=== PATIENT | female | born 1990 | race Caucasian/White ===

== ENCOUNTER 2016-06-20 19:58 | Emergency (ER) ==
[2016-06-20 20:06] VITALS: BP 108/75; TEMP 99.9; BMI 22.4
--- NOTE | 2016-06-20 20:17 | ED.PDOC ---
General ED Provider: Dr. JOY RAYO Chief Complaint: Abdominal Pain Stated Complaint: Patient is a 25 year old female who states she has been told that she has thickened lining of uterus and has appt in july to schedule hysterectomy. Today she complains of diffuse abdominal pain and cramping that started this morning Time Seen by Physician: 20:17 Mode of Arrival: Walk-In Information Source: Patient Exam Limitations: No limitations Primary Care Provider: MONY LOVING Nursing and Triage Documentation Reviewed and Agree: Yes GI Complaint Exam - Abdominal Pain Complaint/Exam Onset: Gradual Duration: 1 day Symptoms Are: Still present Timing: Constant Initial Severity: Moderate Current Severity: Moderate Location of Pain: Discrete Radiates To: Denies: Chest, Back, Flank, LLQ, RLQ, Inguinal Character: Reports: Cramping Aggravating: Reports: None Alleviating: Reports: None Associated Signs and Symptoms: Denies: Diaphoresis, Fever, Cough, Chest pain, Dizziness, Back pain, Constipation, Blood in stool, Dysuria, Urinary frequency, Decreased urine output, Decreased appetite, Vaginal bleeding, Vaginal discharge , Nausea, Vomiting, Diarrhea, Sore throat, Decreased activity AAA Risk Factors: Reports: None Cardiac Risk Factors: Reports: None Ectopic Risk Factors: Reports: Tubal ligation Ovarian Torsion Risk Factors: Reports: Tubal ligation Surgical Obstruction Risk Factors: Reports: None Related Surgical History: Reports: None Patient Rh Status: Unknown Abdominal Findings: Absent: Pulsatile mass, Abdominal distention, Unequal femoral pulses, Rebound tenderness, Peritoneal signs, McBurney's Point tender, CVA Tenderness, Hernia, Inguinal swelling Review of Systems - Review Of Systems Constitutional: Reports: No symptoms Eyes: Reports: No symptoms Ears, Nose, Mouth, Throat: Reports: No symptoms Respiratory: Reports: No symptoms Cardiac: Reports: No symptoms GI: Reports: Abdominal pain : Reports: No symptoms Musculoskeletal: Reports: No symptoms Skin: Reports: No symptoms Neurological: Reports: Anxiety All Other Systems: Reviewed and Negative Past Medical History - Past Medical History Endocrine: Reports: None Cardiovascular: Reports: None Respiratory: Reports: None Hematological: Reports: None Gastrointestinal: Reports: None Genitourinary: Reports: None Neuro/Psych: Reports: None Musculoskeletal: Reports: None Cancer: Reports: None Last Menstrual Period: 05/24/16 - Surgical History General Surgical History: Reports: Tubal ligation - Family History Family History: Reports: Unknown - Social History Smoking Status: Current every day smoker, Light tobacco smoker Hx Substance Use: No Alcohol Screening: None - Immunizations Tetanus Shot up to Date: Yes Physical Exam - Physical Exam Appearance: Ill-appearing Ill-appearing: Moderate Pain Distress: Moderate Eyes: LYDIA ENT: Ears normal, Nose normal, Oropharynx normal Neck: Supple Respiratory: Airway patent, Breath sounds clear, Breath sounds equal, Respirations nonlabored Cardiovascular: RRR GI/: Soft, Tender (mild diffuse ) Musculoskeletal: Normal strength, ROM intact, No edema, No calf tenderness Skin: Warm Neurological: Sensation intact, Motor intact, Reflexes intact, Cranial nerves intact, Alert, Oriented Psychiatric: Anxious Interpretation - Radiology Interpretation Radiology Interpretation By: Radiologist Radiology Results: Negative Exam Interpreted: CT Scan Critical Care Note - Critical Care Note Total Time (mins): 0 Course - Course Hematology/Chemistry: 06/20/16 20:15 06/20/16 20:15 Orders, Labs, Meds: Lab Review 06/20/16 06/20/16 20:15 20:20 WBC 8.23 RBC 4.39 Hgb 12.6 Hct 36.6 L MCV 83.4 MCH 28.7 MCHC 34.4 RDW Coeff of Sarah Beth 12.4 Plt Count 185 Immature Gran % (Auto) 0.1 Neut % (Auto) 68.4 Lymph % (Auto) 23.2 Roberts % (Auto) 5.5 Eos % (Auto) 2.4 Baso % (Auto) 0.4 Immature Gran # (Auto) 0.0 Neut # 5.6 Lymph # 1.9 Roberts # 0.5 Eos # 0.2 Baso # 0.0 Sodium 138 Potassium 3.6 Chloride 105 Carbon Dioxide 25 Anion Gap 11.6 BUN 14 Creatinine 0.76 Estimated GFR (MDRD) 92.00 BUN/Creatinine Ratio 18.42 Glucose 82 Calcium 8.9 Total Bilirubin 0.86 AST 19 ALT 20 Alkaline Phosphatase 51 Total Protein 7.2 Albumin 4.0 Globulin 3.2 Albumin/Globulin Ratio 1.25 Amylase 33 Lipase 21 Urine Color [place] Urine Clarity Clear Urine pH 5.5 Ur Specific [place] 1.025 Urine Protein Negative Urine Glucose (UA) Negative Urine Ketones Trace Urine Blood Negative Urine Nitrite Negative Urine Bilirubin 1+ Urine Urobilinogen 2.0 Ur Leukocyte Esterase Negative Orders Category Date Time Status ED IV/MEDIPORT/POWERPORT .ONCE EMERGENCY 06/20/16 20:52 Active AMYLASE Stat LAB 06/20/16 20:15 Completed CBC W/ AUTO DIFF Stat LAB 06/20/16 20:15 Completed COMPREHENSIVE METABOLIC PANEL Stat LAB 06/20/16 20:15 Completed LIPASE Stat LAB 06/20/16 20:15 Completed URINALYSIS C & S IF INDICATED Stat LAB 06/20/16 20:20 Completed 0.9 % Sodium Chloride [Saline Flush] MEDS 06/20/16 20:52 Discontinued 1 syr IVF PRN PRN Morphine Sulfate [Morphine 4 mg/ml Syringe] MEDS 06/20/16 20:52 Discontinued 4 mg IVP ONCE STA Ondansetron HCl/Pf [Zofran 4 mg/2 ml] MEDS 06/20/16 20:52 Discontinued 4 mg IVP ONCE STA Sodium Chloride 0.9% [Sodium Chloride] 1,000 ml MEDS 06/20/16 20:[address] ABDOMEN/PELVIS WO CONTRAST Stat RADS 06/20/16 20:16 Completed Medications Discontinued Medications Generic Name Dose Route Start Last Admin Trade Name Freq PRN Reason Stop Dose Admin Sodium Chloride 1,000 mls @ 1,000 mls/hr 06/20/16 20:52 06/20/16 21:03 Sodium Chloride IV 06/20/16 21:51 1,000 mls/hr BOLUS STA Administration Morphine Sulfate 4 mg 06/20/16 20:52 06/20/16 21:06 Morphine 4 Mg/Ml Syringe IVP 06/20/16 20:53 2 mg ONCE STA Administration Ondansetron HCl 4 mg 06/20/16 20:52 06/20/16 21:04 Zofran 4 Mg/2 Ml IVP 06/20/16 20:53 4 mg ONCE STA Administration Sodium Chloride 1 syr 06/20/16 20:52 06/20/16 21:02 Saline Flush IVF 1 syr PRN PRN Administration To flush IV Vital Signs: Temp Pulse Resp BP Pulse Ox 06/20/16 19:59 99.9 F H 76 20 108/75 97 Departure - Departure Time of Disposition: 21:46 Disposition: HOME SELF-CARE Discharge Problem: Abdominal pain Instructions: Abdominal Pain (ED) Condition: Stable Pt referred to PMD for follow-up: Yes Additional Instructions: Push fluids Take Medications as needed for Abdominal pain Follow up with PCP in 3 days. Prescriptions: Dicyclomine HCl [Bentyl] 10 mg PO TID PRN #15 capsule PRN Reason: Abdominal Pain Allergies/Adverse Reactions: Allergies No Known Allergies Allergy (Verified 06/20/16 20:11) Home Medications: Ambulatory Orders Levothyroxine Sodium [Synthroid] 25 mcg PO BEDTIME 01/14/14 Escitalopram Oxalate [Lexapro] 20 mg PO DAILY 02/12/16 Dicyclomine HCl [Bentyl] 10 mg PO TID PRN #15 capsule 06/20/16 Naproxen 500 mg PO BID PRN 06/20/16 Disposition Discussed With: Patient, Family
[2016-06-20 20:22] LABS: BASOPHILS % (AUTO) 0.4 % (0.0-3.0); EOSINOPHILS # (AUTO) 0.2 K/ul (0.0-0.7); EOSINOPHILS % (AUTO) 2.4 % (0.0-7.0); HEMATOCRIT 36.6 % (37.0-47.0); HEMOGLOBIN 12.6 g/dl (12.0-16.0); IMMATURE GRANULOCYTE % (AUTO) 0.1 % (0.0-5.0); LYMPHOCYTES # (AUTO) 1.9 K/uL (0.60-3.4); LYMPHOCYTES % (AUTO) 23.2 (10.0-50.0); MEAN CORPUSCULAR HEMOGLOBIN 28.7 pg (27.0-31.0); MEAN CORPUSCULAR HGB CONC 34.4 (31.8-35.4); MEAN CORPUSCULAR VOLUME 83.4 fl (81.0-99.0); MONOCYTES # (AUTO) 0.5 K/uL (0.4-2.0); MONOCYTES % (AUTO) 5.5 (0-10); NEUTROPHILS # (AUTO) 5.6 K/ul (2.0-6.9); NEUTROPHILS % (AUTO) 68.4; PLATELET COUNT 185 10^3/uL (140-440); RED BLOOD COUNT 4.39 10^6/ul (4.20-5.40); WHITE BLOOD COUNT 8.23 K/ul (4.6-10.2)
[2016-06-20 20:42] LABS: ALBUMIN/GLOBULIN RATIO 1.25; ANION GAP 11.6; BILIRUBIN,TOTAL 0.86 mg/dL (0.00-1.20); BUN/CREATININE RATIO 18.42; CALCIUM 8.9 mg/dL (8.2-10.2); CREATININE 0.76 mg/dL (0.60-1.30); POTASSIUM 3.6 mmol/L (3.5-5.10); TOTAL PROTEIN 7.2 g/dL (6.4-8.2)
[2016-06-20 20:51] LABS: BILIRUBIN,URINE 1+ (NEGATIVE); KETONES,URINE Trace (NEGATIVE); LEUKOCYTE ESTERASE ,URINE Negative (NEGATIVE); NITRITE,URINE Negative (NEGATIVE); PH,URINE 5.5 (5-9); PROTEIN,URINE Negative (NEGATIVE); URINE, BLOOD Negative (NEGATIVE)
[2016-06-20] MEDS ORDERED: MORPHINE 4 MG/ML SYRINGE IVP STA (20:52)
[2016-06-20] MEDS ORDERED: ZOFRAN 4 MG/2 ML IVP STA (20:52)
[2016-06-20] MEDS ORDERED: SODIUM CHLORIDE 1,000 ML IV STA (20:52)
[2016-06-20 21:03] LABS: ADD URINE MICROSCOPIC NO
--- NOTE | 2016-06-20 21:19 | CT ---
EXAM: Noncontrast CT of the abdomen and pelvis HISTORY: Abdominal pain COMPARISON: None available TECHNIQUE: Noncontrast CT of the abdomen and pelvis FINDINGS: No renal or proximal to mid ureteral calculi identified. The distal aspect of both ureters are obsc ured. Left hemipelvis calcifications are seen which may represent phleboliths. There are tubal lig ation clips. No hydronephrosis is seen to suggest obstructing ureteral calculi. Noncontrast technique limits evaluation of the abdominal viscera. The right hepatic lobe measures 2 0.4 cm craniocaudal. The unenhanced gallbladder, spleen, adrenals, kidneys and pancreas are unremar kable. No abnormal small bowel dilation is seen. There is mild to moderate generalized colonic stool. A t ubular structure is partially seen in the right lower quadrant which likely represents a normal appe ndix. There is trace free pelvic fluid. The uterus is retroverted. No free air is seen. IMPRESSION: No renal or proximal to mid ureteral calculi. Distal ureters are obscured. No hydronephrosis to castro ggest obstructing ureteral calculi. Mild hepatomegaly. Partially visualized tubular structure in the right lower quadrant, likely representing a normal yadira endix. Trace free pelvic fluid. Paucity of intra-abdominal fat limits evaluation.
== END 2016-06-20 22:09 | disposition home or self-care (01) ==
LOC: ED 19:58
DX: R10.84 Generalized abdominal pain (principal); F17.210 Nicotine dependence, cigarettes, uncomplicated; Z79.899 Other long term (current) drug therapy
CPT/HCPCS: 36415; 80053; 81001; 82150; 83690; 85025; 96361; 96374; 96375; 99283

== ENCOUNTER 2016-08-08 17:39 | Emergency (ER) ==
--- NOTE | 2016-08-08 17:48 | ED.PDOC ---
General ED Provider: Dr. ELVIRA KUO JR Stated Complaint: sore throat, right ear pain, and vomiting last night x1 with dry heaves[End]2days 98.8 78 20 97% 122/85 Time Seen by Physician: 17:47 Mode of Arrival: Walk-In Information Source: Patient Exam Limitations: No limitations Primary Care Provider: MONY LOVING Nursing and Triage Documentation Reviewed and Agree: No Review of Systems - Review Of Systems Constitutional: Reports: Fever, Malaise, Weakness Eyes: Reports: No symptoms Ears, Nose, Mouth, Throat: Reports: Ear pain, Throat pain Respiratory: Reports: Cough Cardiac: Reports: No symptoms GI: Reports: No symptoms : Reports: No symptoms Musculoskeletal: Reports: No symptoms Skin: Reports: No symptoms Neurological: Reports: No symptoms Endocrine: Reports: No symptoms Hematologic/Lymphatic: Reports: No symptoms All Other Systems: Other Past Medical History - Past Medical History Endocrine: Reports: None, Hypothyroid Cardiovascular: Reports: None Respiratory: Reports: None Hematological: Reports: None Gastrointestinal: Reports: None Genitourinary: Reports: None Neuro/Psych: Reports: None, Depression Musculoskeletal: Reports: None Cancer: Reports: None Last Menstrual Period: 07/29/16 - Surgical History General Surgical History: Reports: Tubal ligation - Family History Family History: Reports: Unknown - Social History Smoking Status: Current every day smoker Hx Substance Use: No Alcohol Screening: None - Immunizations Tetanus Shot up to Date: Yes Physical Exam - Physical Exam Appearance: Well-appearing, Thin Pain Distress: Moderate Eyes: LYDIA, EOMI, Conjunctiva clear ENT: Ears normal (retracted), Nose normal, Oropharynx normal Neck: Supple (left neck tenderness without lad) Respiratory: Airway patent, Breath sounds clear, Breath sounds equal, Respirations nonlabored Cardiovascular: RRR, Pulses normal, No rub, No murmur GI/: Soft, Nontender, No masses, Bowel sounds normal, No Organomegaly Musculoskeletal: Normal strength, ROM intact, No edema, No calf tenderness Skin: Warm, Dry, Normal color Neurological: Sensation intact, Motor intact, Reflexes intact, Cranial nerves intact, Alert, Oriented Psychiatric: Affect appropriate, Mood appropriate Critical Care Note - Critical Care Note Total Time (mins): 0 Course - Course Vital Signs: Temp Pulse Resp BP Pulse Ox 08/08/16 17:39 98.8 F 78 20 122/85 97 Departure - Departure Time of Disposition: 18:54 Disposition: HOME SELF-CARE Discharge Problem: URTI (acute upper respiratory infection) Instructions: Upper Respiratory Infection (ED) Condition: Good Pt referred to PMD for follow-up: Yes Additional Instructions: rest fluids for 12 to 24 hours after nausea then usual diet cough medication such as Robitussin DM is useful when coughing return iffever over 101.0 or worsening Prescriptions: Cephalexin [Keflex] 500 mg PO QID #40 capsule Promethazine HCl [Phenergan Tab] 25 mg PO QID PRN #12 tablet PRN Reason: Nausea / Vomiting Allergies/Adverse Reactions: Allergies No Known Allergies Allergy (Verified 08/08/16 17:45) Home Medications: Ambulatory Orders Levothyroxine Sodium [Synthroid] 25 mcg PO BEDTIME 01/14/14 Escitalopram Oxalate [Lexapro] 20 mg PO DAILY 02/12/16 Cephalexin [Keflex] 500 mg PO QID #40 capsule 08/08/16 Promethazine HCl [Phenergan Tab] 25 mg PO QID PRN #12 tablet 08/08/16
[2016-08-08 17:50] VITALS: BP 122/85; TEMP 98.8; BMI 21.8
[2016-08-08 18:17] LABS: FLU INTERNAL QC INTERNAL QC VALID; RAPID FLU A NEGATIVE (NEGATIVE); RAPID FLU B NEGATIVE (NEGATIVE)
== END 2016-08-08 19:05 | disposition home or self-care (01) ==
LOC: ED 17:39
DX: J06.9 Acute upper respiratory infection, unspecified (principal); F17.210 Nicotine dependence, cigarettes, uncomplicated
CPT/HCPCS: 87651; 87804; 87880; 99283

== ENCOUNTER 2016-08-23 08:54 | Outpatient (CLI) ==
[2016-08-23 09:18] LABS: BILIRUBIN,URINE Negative (NEGATIVE); KETONES,URINE Negative (NEGATIVE); LEUKOCYTE ESTERASE ,URINE Negative (NEGATIVE); NITRITE,URINE Negative (NEGATIVE); PROTEIN,URINE Negative (NEGATIVE); URINE, BLOOD 2+ (NEGATIVE)
[2016-08-23 09:22] LABS: BASOPHILS # (AUTO) 0.1 K/uL (0-0.2); BASOPHILS % (AUTO) 0.9 % (0.0-3.0); EOSINOPHILS # (AUTO) 0.2 K/ul (0.0-0.7); EOSINOPHILS % (AUTO) 2.9 % (0.0-7.0); HEMATOCRIT 36.3 % (37.0-47.0); HEMOGLOBIN 12.4 g/dl (12.0-16.0); IMMATURE GRANULOCYTE % (AUTO) 0.2 % (0.0-5.0); LYMPHOCYTES # (AUTO) 2.5 K/uL (0.60-3.4); LYMPHOCYTES % (AUTO) 44.2 (10.0-50.0); MEAN CORPUSCULAR HEMOGLOBIN 28.6 pg (27.0-31.0); MEAN CORPUSCULAR HGB CONC 34.2 (31.8-35.4); MEAN CORPUSCULAR VOLUME 83.8 fl (81.0-99.0); MONOCYTES # (AUTO) 0.3 K/uL (0.4-2.0); MONOCYTES % (AUTO) 5.2 (0-10); NEUTROPHILS # (AUTO) 2.6 K/ul (2.0-6.9); NEUTROPHILS % (AUTO) 46.6; PLATELET COUNT 255 10^3/uL (140-440); RED BLOOD COUNT 4.33 10^6/ul (4.20-5.40); WHITE BLOOD COUNT 5.61 K/ul (4.6-10.2)
[2016-08-23 09:35] LABS: COCAIN SCREEN,URINE NEGATIVE (NEGATIVE); SERUM PREGNANCY INTERNAL QC INTERNAL QC VALID
[2016-08-23 10:01] LABS: ADD URINE MICROSCOPIC YES
[2016-08-23 10:10] LABS: ALBUMIN 4.1 g/dL (3.4-5.0); ALBUMIN/GLOBULIN RATIO 1.24; BILIRUBIN,TOTAL 0.43 mg/dL (0.00-1.20); BUN/CREATININE RATIO 10.12; CALCIUM 9.3 mg/dL (8.2-10.2); CREATININE 0.79 mg/dL (0.60-1.30); TOTAL PROTEIN 7.4 g/dL (6.4-8.2)
== END 2016-08-23 08:55 | disposition home or self-care (01) ==
LOC: LAB 08:54
PROVIDERS: ATTEND Family Medicine
DX: E05.90 Thyrotoxicosis, unspecified without thyrotoxic crisis or storm (principal); G43.909 Migraine, unspecified, not intractable, without status migrainosus; N94.6 Dysmenorrhea, unspecified; F31.9 Bipolar disorder, unspecified; Z79.899 Other long term (current) drug therapy
CPT/HCPCS: 36415; 80053; 80306; 81001; 84439; 84443; 84703; 85025

== ENCOUNTER 2018-10-04 00:03 | Emergency (ER) | payer OTHER ==
[2018-10-04 00:17] VITALS: BP 118/81; TEMP 99.4; BMI 21.7
[2018-10-04 00:30] LABS: URINE PREGNANCY TEST NEGATIVE (NEGATIVE)
--- NOTE | 2018-10-04 01:04 | ED.PDOC ---
General ED Provider: Dr. THADDEUS CASTILLO-ER Chief Complaint: Urinary Problem Stated Complaint: noted sore throat and vaginal discharge Time Seen by Physician: 00:10 Mode of Arrival: Walk-In Information Source: Patient Exam Limitations: No limitations Primary Care Provider: PRISCILLA JEFFRIES Nursing and Triage Documentation Reviewed and Agree: Yes Does patient meet sepsis criteria?: No System Inflammatory Response Syndrome: Not Applicable Sepsis Protocol: For patient's 13 years and over: Temp is 96.8 and below OR 101 and greater Pulse >90 BPM Resp >20/minute Acutely Altered Mental Status Are patient's symptoms suggestive of a new infection, such as: -Pneumonia -Skin, Soft Tissue -Endocarditis -UTI -Bone, Joint Infection -Implantable Device -Acute Abdominal Infection -Wound Infection -Meningitis -Blood Stream Catheter Infection -Unknown EENT Complaint Exam - Throat Complaint/Exam Onset/Duration: 2 days Symptoms Are: Still present Timimg: Constant Initial Severity: Mild Current Severity: Mild Alleviating: Reports: None Uvula Midline: Yes Fabienne-tonsillar Fluctuence: No Scarlatinaform Rash Present: No Exanthem: Present: Pharynx Stridor Present: No Sinus Tenderness Present: No Tonsillar Hypertrophy Present: No Tonsillar Exudate Present: No Fabienne-tonsillar Swelling Present: No Adenopathy Present: Yes Splenomegaly Present: No Differential Diagnoses: Pharyngitis Review of Systems - Review Of Systems Constitutional: Reports: No symptoms Eyes: Reports: No symptoms Ears, Nose, Mouth, Throat: Reports: Throat pain Respiratory: Reports: No symptoms Cardiac: Reports: No symptoms GI: Reports: No symptoms : Reports: Discharge. Denies: Pain Musculoskeletal: Reports: No symptoms Skin: Reports: No symptoms Neurological: Reports: No symptoms Endocrine: Reports: No symptoms Hematologic/Lymphatic: Reports: No symptoms All Other Systems: Reviewed and Negative Past Medical History - Past Medical History Previously Healthy: No Endocrine: Reports: None, Hypothyroid Cardiovascular: Reports: None Respiratory: Reports: None Hematological: Reports: None Gastrointestinal: Reports: None Genitourinary: Reports: None Neuro/Psych: Reports: None, Depression Musculoskeletal: Reports: None Cancer: Reports: None Last Menstrual Period: 08/19/18 - Surgical History General Surgical History: Reports: Tubal ligation - Family History Family History: Reports: Unknown - Social History Smoking Status: Former smoker, Vaping Hx Substance Use: No Alcohol Screening: None - Immunizations Tetanus Shot up to Date: Yes Physical Exam - Physical Exam Appearance: Well-appearing, No pain distress, Well-nourished Eyes: LYDIA, EOMI, Conjunctiva clear ENT: Ears normal Neck: Supple Respiratory: Airway patent, Breath sounds clear, Breath sounds equal, Respirations nonlabored Cardiovascular: RRR, Pulses normal, No rub, No murmur GI/: Soft, Nontender, No masses, Bowel sounds normal, No Organomegaly Musculoskeletal: Normal strength, ROM intact, No edema, No calf tenderness Skin: Warm, Dry, Normal color Neurological: Sensation intact, Motor intact, Reflexes intact, Cranial nerves intact, Alert, Oriented Psychiatric: Affect appropriate, Mood appropriate Critical Care Note - Critical Care Note Total Time (mins): 0 Course - Course Orders, Labs, Meds: Lab Review 10/04/18 10/04/18 00:20 00:20 Urine Color Yellow Urine Clarity Slightly Urine pH 6.0 Ur Specific [place] 1.010 Urine Protein Negative Urine Glucose (UA) Negative Urine Ketones Negative Urine Blood Negative Urine Nitrite Negative Urine Bilirubin Negative Urine Urobilinogen 1.0 Ur Leukocyte Esterase 3+ Urine Microscopic WBC 2-5 Ur Squamous Epith Cells 10-20 Amorphous Sediment Trace Urine Bacteria Trace Urine Test Negative Orders Category Date Time Status CHLAMYDIA/GC AMPLIFICATION Stat LAB 10/04/18 00:55 Received NELA PREP Stat LAB 10/04/18 00:55 Received MOLECULAR GROUP A STREP Stat LAB 10/04/18 00:20 Completed URINALYSIS C & S IF INDICATED Stat LAB 10/04/18 00:20 Completed URINE CULTURE Stat LAB 10/04/18 00:20 Received URINE Stat LAB 10/04/18 00:20 Completed VAGINAL CULTURE [GENITAL CULTURE] Stat LAB 10/04/18 00:55 Received WET PREP Stat LAB 10/04/18 00:55 Received Vital Signs: Temp Pulse Resp BP Pulse Ox 10/04/18 00:05 99.4 F 63 20 118/81 97 Departure - Departure Time of Disposition: 01:08 Disposition: HOME SELF-CARE Discharge Problem: Vaginitis Qualifiers: Chronicity: acute Qualified Code(s): N76.0 - Acute vaginitis Pharyngitis Qualifiers: Pharyngitis/tonsillitis etiology: unspecified etiology Qualified Code(s): J02.9 - Acute pharyngitis, unspecified Instructions: Pharyngitis (ED) Condition: Good Pt referred to PMD for follow-up: Yes IPMP verified?: No Additional Instructions: keflex 500mg bid x 7 days plus flagyl 250mg tid x 7 days plus diflucan 150mg x 1 ---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
== END 2018-10-04 01:15 | disposition home or self-care (01) ==
LOC: ED 00:03
DX: J02.9 Acute pharyngitis, unspecified (principal); N89.8 Other specified noninflammatory disorders of vagina; N76.0 Acute vaginitis
CPT/HCPCS: 36415; 81001; 81025; 87070; 87086; 87210; 87651; 87800; 99283